=== PATIENT | female | born 1990 | race Caucasian/White ===

== ENCOUNTER 2019-07-06 15:30 | Inpatient (IN) ==
[2019-07-06] MEDS ORDERED: LACTATED RINGER'S 1,000 ML IV PRN (15:50)
[2019-07-06] MEDS ORDERED: OXYTOCIN 30 UNITS/500 ML BAG IV PRN ×2 (15:50→16:05)
[2019-07-06] MEDS ORDERED: PENICILLIN G POTASSIUM 6 MU in DEXTROSE 5% 250 ML IV ONE (16:15)
[2019-07-06 16:17] LABS: Mean Corpuscular Volume 86.2 fL (80-100); Mean Platelet Volume 8.5 fL (7.4-10.4); Platelet Count 259 K/uL (130-400); RDW Coefficient of Variation 16.1 % (11.5-14.5); RDW Standard Deviation 51.4 fL (36.4-46.3); Red Blood Count 3.83 M/uL (4.2-5.4); White Blood Count 11.07 K/uL (4.8-10.8)
[2019-07-06 16:28] LABS: Mean Corpuscular Hgb Conc 33.3 g/dL (32-36)
--- NOTE | 2019-07-06 18:48 | History & Physical Report ---
Date of Service July 06, 2019 Assessment & Plan (1) : Given the SSE in the office, I suspect she may have a high or slow leak. She is 40+, 4cm, and GBS positive. Given all this, I recommend admission, treatment for gbs, and augmentation. She is agreeable to this. Fetus category one. Anticipate . History of Present Illness Chief Complaint: Pateint is a 28yowf with iup at term who presented for her pn visit today complaining of feeling wet all day. Awoke this am, underwear soaked. Continued to feel wet all day. No real gushes. no vb. Some contractions but no changes. complicated by GBS carrier. 35 week transfer from [place], in [facility]. Patient had SSE in the office with immediate +nitrazine and a very few ferns. labs--A+/ab-/pap nl/ri/rprnr/hepb-/hiv declined/panorama neg/gtt at 28 weeks 133/gbs positive urine. Primary Care Provider: NO PCP Allergies Allergy/AdvReac Type Severity Reaction Status Date / Time cefuroxime [From Ceftin] Allergy Mild Vomiting Verified 07/06/19 15:57 hydrocodone Allergy Hives Verified 07/06/19 15:57 Home Medications Home Medications Medication Instructions Recorded Confirmed Type ferrous gluconate 240 mg (27 mg 325 mg PO DAILY tab 06/26/19 07/06/19 History iron) tablet pediatric multivitamin no.49 1 tab PO DAILY tab 06/26/19 07/06/19 History chewable tablet Patient History Social History Preferred Language: [place] Communication Ability: Effective Personal Care Worker Required: No Beliefs That Will Affect Care: None marital status: Current Living Situation: Family Current Living Situation Comment: in [facility] Feels Safe at Home: Yes Safety Concerns: Feels Safe At This Time Smoking Status: Never smoker Do You Dip or Chew Tobacco: No ; Second Hand Exposure: No ; Hx Alcohol Use: No Hx Substance Use: No OB History g1--02/09, , 6#13oz, g2--06/13, sab g3--06/14, , 7#, no issues Review of Systems All systems reviewed & are unremarkable except as noted in HPI & below Physical Exam Constitutional: WD/WN, vitals as above Gastrointestinal (Abdomen): soft, gravid, nt Genitourinary: cx--4/50/-2, can feel some membranes toco--irregular contractions efm--135 with mod variability, accels to 150s, no decels sse--slight amount of fluid, could not get ferns. Results & Data Vital Signs (Past 12 Hours) Vital Signs Temp Pulse Resp BP 07/06/19 18:25 90 108/57 L 07/06/19 17:58 81 116/57 L 07/06/19 17:34 80 109/67 07/06/19 16:00 36.6 C 81 18 116/57 L Code Status & VTE Plan VTE Prophylaxis Plan VTE Prophylaxis will be ordered: No
[2019-07-06] MEDS ORDERED: CALCIUM CARBONATE 500 MG CHEWABLE TAB PO PRN (19:46)
[2019-07-06] MEDS ORDERED: CALCIUM CARBONATE 500 MG CHEWABLE TAB ONE (20:06)
[2019-07-06] MEDS: PENICILLIN G POTASSIUM 3 MU in DEXTROSE 5% 100 ML IV PRN (20:23)
--- NOTE | 2019-07-07 00:04 | Labor Progress Brief Note ---
Date of Service July 07, 2019 Subjective had a big gush of fluid and some pressure Assessment & Plan (1) Carrier of group B Streptococcus: continue pcn (2) Supervision of normal intrauterine in multigravida: Continue current plan. FEtus reassuring. anticipate . epidural if desires. definitely ruptured at this point. Physical Exam Constitutional: WD/WN, vitals as above Genitourinary: cx--4/90/-2 clear fluid toco--q2-4min, pit at 16 efm--125 with mod variability, accels to 150s, no decels Results & Data Vital Signs (Past 12 Hours) Vital Signs Temp Pulse Resp BP 07/06/19 23:45 89 112/63 07/06/19 23:21 36.7 C 91 H 18 112/72 07/06/19 23:15 36.7 C 91 H 18 112/72 07/06/19 22:44 89 104/59 L 07/06/19 22:24 87 108/58 L 07/06/19 22:04 97 H 18 104/66 07/06/19 22:00 36.5 C 18 07/06/19 21:44 95 H 106/59 L 07/06/19 21:05 96 H 18 126/70 07/06/19 20:45 90 112/59 L 07/06/19 20:24 101 H 118/76 07/06/19 20:05 97 H 117/68 07/06/19 19:45 95 H 18 119/57 L 07/06/19 19:30 36.5 C 18 07/06/19 19:25 86 120/74 07/06/19 19:05 95 H 18 113/58 L 07/06/19 18:45 96 H 105/64 07/06/19 18:25 90 108/57 L 07/06/19 17:58 81 18 116/57 L 07/06/19 17:34 80 109/67 07/06/19 16:00 36.6 C 81 18 116/57 L
[2019-07-07] MEDS ORDERED: BUPIVACAINE 0.25% 30 ML VIAL ONE (00:13)
[2019-07-07] MEDS ORDERED: ePHEDrine sulfate 50 MG/ML AMP ONE (00:13)
[2019-07-07] MEDS ORDERED: fentaNYL 2MCG/ML ROPIV 1.25MG/ML 100 ML BAG EPI ONE (00:14)
[2019-07-07] MEDS ORDERED: fentaNYL citrate 100 MCG/2 ML VIAL ONE (00:14)
[2019-07-07] MEDS ORDERED: fentaNYL 2MCG/ML ROPIV 1.25MG/ML 100 ML BAG EPI PRN (00:18)
[2019-07-07] MEDS ORDERED: ONDANSETRON INJ 2 MG/ML 2 ML VIAL IV PRN (00:18)
[2019-07-07] MEDS ORDERED: NALOXONE HCL 0.4 MG/1 ML VIAL/CARP IV PRN (00:18)
[2019-07-07] MEDS ORDERED: NALOXONE HCL 1 MG in SODIUM CHLORIDE 0.9% 1000ML 1,000 ML IV PRN (00:18)
[2019-07-07] MEDS ORDERED: DiphenhydrAMINE HCL 50 MG/ML VIAL IV PRN (00:18)
[2019-07-07] MEDS ORDERED: ePHEDrine sulfate 50 MG/ML AMP IV PRN (00:18)
--- NOTE | 2019-07-07 00:20 | Anesthesiology Consultation ---
Date of Service July 07, 2019 Assessment & Plan (1) Encounter for pre-operative examination: Chart Review Chart Review: Patient NOT seen in Pre Admission Testing and Acceptable Risk for Labor Epidural Consults Requested none History Height/Weight Height: 5 ft 7 in Weight: 72.121 kg Allergies Allergy/AdvReac Type Severity Reaction Status Date / Time cefuroxime [From Ceftin] Allergy Mild Vomiting Verified 07/06/19 15:57 hydrocodone Allergy Hives Verified 07/06/19 15:57 Medications Home Medications Medication Instructions Recorded Confirmed Last Taken ferrous gluconate 240 mg (27 mg 325 mg PO DAILY tab 06/26/19 07/06/19 07/06/19 08:00 iron) tablet pediatric multivitamin no.49 1 tab PO DAILY tab 06/26/19 07/06/19 07/06/19 08:00 chewable tablet Active Medications Generic Name Dose Route Start Last Admin Trade Name Freq PRN Reason Stop Dose Admin Calcium Carbonate 500 mg 07/06/19 19:46 07/07/19 00:00 Tums PO 08/05/19 19:45 500 mg [id number] PRN Administration Indigestion Lactated Ringer's 1,000 mls @ 125 mls/hr 07/06/19 15:50 07/06/19 16:40 Lr IV 07/08/19 15:49 125 mls/hr .Q8H PRN Administration L&D Protocol Protocol Penicillin G Potassium 3 mu/ 106 mls @ 100 mls/hr 07/06/19 15:50 07/06/19 21:32 Dextrose IV 07/16/19 15:49 Infused Q4H PRN Infusion Give until delivery Oxytocin 30 units in 500 mls @ 16 mls/hr 07/06/19 16:05 07/06/19 23:35 Pitocin IV 07/08/19 16:04 0.96 units/hr .Q24H PRN 16 mls/hr Labor Induction/Augmentation Titration Protocol 0.96 UNITS/HR Past Medical History Medical History History of iron deficiency History of varicella Pelvic floor dysfunction STAGE 2 PROLAPSE (spontaneous vaginal delivery) 2013,2016 Exercise / Class Metabolic Activity II 4-5 Yardwork/Stairs/Walk up hill Past Family History Family History Mother Kidney disease Grandmother (Maternal) Kidney disease Son Triploidy syndrome Other Chromosomal disease Muscular dystrophy Past Surgical History Surgical History S/P dilatation and curettage S/P tonsillectomy S/P wisdom tooth extraction Past Anesthesia History No Hx of Anesthesia Complications and No Family Hx of Anesthesia Complications History of PONV No Hx of PONV and No Hx of Motion Sickness Social History Smoking Status: Never smoker Do You Dip or Chew Tobacco: No Hx Alcohol Use: No Hx Substance Use: No Physical Exam Vital Signs Last Vital Signs Temp 36.7 C 07/06/19 23:21 Pulse 90 07/07/19 00:04 Resp 18 07/06/19 23:21 BP 115/66 07/07/19 00:04 Testing Laboratory Results 07/06/19 16:06
[2019-07-07] MEDS: PENICILLIN G POTASSIUM 3 MU in DEXTROSE 5% 100 ML IV PRN (00:26)
[2019-07-07] MEDS ORDERED: ACETAMINOPHEN 325 MG TAB PO PRN (02:23)
[2019-07-07] MEDS ORDERED: OXYCODONE/ACETAMINOPHEN 5mg/325mg TAB PO PRN (02:23)
--- NOTE | 2019-07-07 02:27 | Delivery Summary ---
Vaginal Delivery Summary Date of Service July 07, 2019 Vaginal Delivery Summary Pre-operative Diagnosis: at 40 weeks, spontaneous rupture of membranes, GBS positive Post-operative Diagnosis: same Procedure: pitocin, epidural, , iv antibiotics for gbs EBL: 400cc Aesthesia: epidural Procedure: The patient pushed for one contraction to deliver a viable male in maribeth position. The nose and mouth were bulb suctioned on the perineum and the rest of the infant was then delivered without difficulty. The nose and mouth were bulb suctioned and the was placed in the maternal abdomen for drying and attention. Cord was clamped and cut at one minute of life. Cord blood and segment obtained. Placenta delivered s/i/3vc. Cervix/sulci/rectum/perineum intact. No repair Hemostasis obtained with dilute pitocin and fundal massage. Apgars were 8/9. Mother and baby doing well at the end of the delivery.
[2019-07-07] MEDS ORDERED: BISACODYL 10 MG SUPP PR PRN (03:26)
[2019-07-07] MEDS ORDERED: DIPHTHERIA/TETANUS/PERTUSSIS 0.5 ML SYR/VIAL IM ONE (03:26)
[2019-07-07] MEDS ORDERED: HYDROCORTISONE ACETATE 25 MG SUPP PR PRN (03:26)
[2019-07-07] MEDS ORDERED: SUPERCREAM 0.870% 15 GM JAR EXT PRN (03:26)
[2019-07-07] MEDS ORDERED: BENZOCAINE 20% AER SPR 82.5 GM CAN EXT PRN (03:26)
[2019-07-07] MEDS ORDERED: OXYTOCIN 30 UNITS/500 ML BAG IV PRN (03:26)
--- NOTE | 2019-07-07 07:21 | Obstetrical Progress Note ---
Date of Service July 07, 2019 Assessment & Plan (1) Normal vaginal delivery: Doing well. Routine PP care. Day #:: 0 Subjective Ambulation: ambulating normally Voiding: no voiding problems Passing Gas:: Yes Diet Tolerance:: regular diet Lochia:: Small Feeding Type:: breast feeding Physical Exam Constitutional WD/WN, vitals as above Cardiovascular Extremities: no calf tenderness and no edema Gastrointestinal (Abdomen) Inspection/Auscultation: abdomen not distended Percussion/Palpation: abdomen soft; abdomen nontender funfus firm, nt at u Psychiatric A+Ox3, euthymic affect Results & Data Vital Signs (Past 12 Hours) Vital Signs Temp Pulse Pulse Resp BP BP Pulse Ox 07/07/19 04:25 36.5 C 96 H 20 127/72 97 07/07/19 03:49 97 H 105/58 L 07/07/19 03:39 94 H 99/51 L 07/07/19 03:29 88 103/53 L 07/07/19 03:19 85 111/60 07/07/19 03:00 84 18 113/56 L 07/07/19 02:50 93 H 119/76 07/07/19 02:39 92 H 107/55 L 07/07/19 02:29 90 109/56 L 07/07/19 02:19 82 111/56 L 07/07/19 02:09 93 H 113/56 L 07/07/19 01:59 98 H 116/59 L 07/07/19 01:54 95 H 128/59 L 07/07/19 01:49 111 H 18 132/60 95 07/07/19 01:44 99 H 150/65 H 96 07/07/19 01:39 117 H 99 07/07/19 01:34 104 H 114/63 99 07/07/19 01:29 97 H 119/67 96 07/07/19 01:26 36.7 C 18 07/07/19 01:24 86 102/60 97 07/07/19 01:19 85 106/54 L 96 07/07/19 01:15 97 H 111/75 07/07/19 01:14 88 96 07/07/19 01:09 95 H 96 07/07/19 01:08 98 H 109/65 07/07/19 01:06 96 H 111/63 07/07/19 01:04 91 H 106/55 L 96 07/07/19 01:02 90 18 123/58 L 07/07/19 00:59 108 H 98 07/07/19 00:58 88 113/57 L 07/07/19 00:56 103 H 116/59 L 07/07/19 00:54 100 H 128/69 97 07/07/19 00:52 90 109/69 07/07/19 00:50 93 H 104/60 07/07/19 00:49 99 H 98 07/07/19 00:48 86 104/59 L 07/07/19 00:46 93 H 109/56 L 07/07/19 00:44 99 H 105/56 L 98 07/07/19 00:42 92 H 116/62 07/07/19 00:40 101 H 18 131/75 07/07/19 00:39 95 H 100 07/07/19 00:34 118 H 97 07/07/19 00:24 97 H 18 127/67 07/07/19 00:04 90 115/66 07/06/19 23:45 89 18 112/63 07/06/19 23:21 36.7 C 91 H 18 112/72 07/06/19 23:15 36.7 C 91 H 18 112/72 07/06/19 22:44 89 104/59 L 07/06/19 22:24 87 108/58 L 07/06/19 22:04 97 H 18 104/66 07/06/19 22:00 36.5 C 18 07/06/19 21:44 95 H 106/59 L 07/06/19 21:05 96 H 18 126/70 07/06/19 20:45 90 112/59 L 07/06/19 20:24 101 H 118/76 07/06/19 20:05 97 H 117/68 07/06/19 19:45 95 H 18 119/57 L 07/06/19 19:30 36.5 C 18 07/06/19 19:25 86 120/74
[2019-07-07] MEDS: DOCUSATE SODIUM 100 MG CAP PO SCH ×2 (08:35→20:38)
[2019-07-07] MEDS: IBUPROFEN 600 MG TAB PO PRN ×2 (08:35→20:39)
[2019-07-07] MEDS: PRENATAL VITAMIN 1 TAB PO SCH (08:35)
--- NOTE | 2019-07-07 08:36 | Anesthesia Procedure Note ---
Date of Service July 07, 2019 Anesthesia Post Epidural Note Vital Signs Vital Signs: Temp Pulse Resp BP Pulse Ox 36.5 C 96 H 20 127/72 97 07/07/19 04:25 07/07/19 04:25 07/07/19 04:25 07/07/19 04:25 07/07/19 04:25 Notes Mental Status: alert / awake / arousable and participated in evaluation Nausea / Vomiting: adequately controlled Pain: adequately controlled Airway Patency, RR, SpO2: stable & adequate BP & HR: stable & adequate Hydration State: stable & adequate Neuraxial Anesthesia: was administered and sensory block is resolving Anesthetic Complications: no major complications apparent and Pt Satisfied with anesthetic care Epidural: Removed without complications and With tip intact
--- NOTE | 2019-07-08 09:02 | Obstetrical Progress Note ---
Date of Service July 08, 2019 Assessment & Plan (1) Normal vaginal delivery: Doing well. Routine PP care. Stable for discharge Subjective Ambulation: ambulating normally Voiding: no voiding problems Passing Gas:: Yes Diet Tolerance:: regular diet Lochia:: Moderate Feeding Type:: breast feeding Current Pain Level(1-10): 3 Physical Exam Gastrointestinal (Abdomen) normal bowel sounds, soft, nontender, no hepatosplenomegaly Genitourinary OB Exam Abdomen: + fundal height Fundus: + firm and + relation to umbilicus (Below); not tender and not boggy Results & Data Vital Signs (Past 12 Hours) Vital Signs Temp Pulse Resp BP Pulse Ox 07/07/19 23:15 36.2 C L 82 16 105/68 97
[2019-07-08] MEDS: DOCUSATE SODIUM 100 MG CAP PO SCH (09:41)
[2019-07-08] MEDS: IBUPROFEN 600 MG TAB PO PRN (09:41)
[2019-07-08] MEDS: PRENATAL VITAMIN 1 TAB PO SCH (09:41)
[2019-07-08] MEDS ORDERED: BISACODYL 5 MG TABEC PO SCH (20:00)
== END 2019-07-08 14:45 | disposition home or self-care (01) | DRG 807 ==
LOC: 4S1 15:30 → OPB 15:30 → 4S1 15:51 → 4S2 07-07 04:34